=== PATIENT | male | born 1955 | race Caucasian/White ===

== ENCOUNTER 2019-10-07 23:21 | Emergency (ER) | payer MEDICARE, MEDICAID ==
[~2019-10-07] VITALS: Ht 182.2 cm; Wt 72.0 kg
[~2019-10-07 23:21] MED LIST: ONDA4TAB59 PO; ONDA4TAB6 PO; PROM12.512 PO
[2019-10-07 23:59] VITALS: BP 124/75
[2019-10-09] MEDS ORDERED: OLAN-1 PO (11:12)
== END 2019-10-08 00:14 | disposition home or self-care (01) ==
LOC: ER 23:21
DX: R11.0 Nausea (principal); M19.90 Unspecified osteoarthritis, unspecified site; F20.9 Schizophrenia, unspecified; F15.90 Other stimulant use, unspecified, uncomplicated; Z86.69 Personal history of other diseases of the nervous system and sense organs; Z90.49 Acquired absence of other specified parts of digestive tract; Z59.0 Homelessness; Z56.0 Unemployment, unspecified; Z79.899 Other long term (current) drug therapy
CPT/HCPCS: 99283; 99284

== ENCOUNTER 2019-10-09 10:33 | Emergency (ER) | payer MEDICARE, MEDICAID ==
[~2019-10-09] VITALS: Ht 180.3 cm; Wt 72.7 kg
[2019-10-09 10:34] VITALS: BP 131/84
[2019-10-09] MEDS ORDERED: OLANZapine 5mg rapidly disint. tablet PO ONE (11:10)
[2019-10-09] MEDS ORDERED: OLAN-1 PO (11:12)
== END 2019-10-09 11:20 | disposition home or self-care (01) ==
LOC: ER 10:34
DX: F20.0 Paranoid schizophrenia (principal); R50.9 Fever, unspecified; M19.90 Unspecified osteoarthritis, unspecified site; F15.90 Other stimulant use, unspecified, uncomplicated; Z86.69 Personal history of other diseases of the nervous system and sense organs; Z90.49 Acquired absence of other specified parts of digestive tract; Z59.0 Homelessness; Z56.0 Unemployment, unspecified; Z79.899 Other long term (current) drug therapy
CPT/HCPCS: 99283